=== PATIENT | male | born 1955 | race Hispanic/Latino ===

== ENCOUNTER → 2018-06-29 | Outpatient (CLI) | payer MEDICARE ==
--- NOTE | 2018-06-30 09:00 | Diagnostic Imaging Report ---
MRI of the left shoulder without contrast. History: Shoulder pain. Decreased range of motion. Pain not responding to conservative management Comparison: None Technique: Coronal PD FS, sagital PD FS, and axial PD and PD FS. Findings: Rotator cuff: There is rotator cuff tendinosis with a small full-thickness tear involving the anterior fibers of the supraspinatus and infraspinatus tendons at the humeral insertion site. There is minimal retraction of the torn fibers and there is mild muscle atrophy. This is best seen on coronal image 14 through 16. Additionally, there is subscapularis tendinosis. There is nonspecific teres minor muscle atrophy. Osseous acromion complex: There is a type II acromion with mild lateral downsloping. There is moderate degenerative arthrosis at the acromioclavicular joint with undersurface spurring and narrowing of the supraspinatus tendon outlet. There is subacromial/subdeltoid bursitis. Glenohumeral joint: There is degeneration and fraying of the labrum. The articular cartilage surfaces are slightly thin. The humeral head is well-seated in the glenoid fossa Biceps tendon: The biceps tendon is intact. Other findings: Negative for muscle dilatation or osseous fracture. Impression: Rotator cuff tendinosis with a small full-thickness tear involving the anterior fibers of the supraspinatus and infraspinatus tendons at the humeral insertion site. There is minimal retraction of the torn fibers and there is mild muscle atrophy. There is nonspecific teres minor muscle atrophy. Moderate degenerative arthrosis at the acromioclavicular joint with narrowing of the supraspinatus tendon outlet and subacromial/subdeltoid bursitis. Signed by: Dr. Jon Fregoso M.D. on 06/30/2018 8:56 AM
== END ==
LOC: MRI 15:48
PROVIDERS: ATTEND Internal Medicine
DX: M25.512 Pain in left shoulder (principal)

== ENCOUNTER → 2019-04-07 | Outpatient (CLI) | payer MEDICARE ==
--- NOTE | 2019-04-07 12:52 | Diagnostic Imaging Report ---
History: Cognitive impairment. Comparison studies:None Technique: Axial images were obtained from the skull base to the vertex. Coronal and sagittal images reconstructed from the axial data. Intravenous contrast: None Dose modulation, iterative reconstruction, and/or weight based adjustment of the mA/kV was utilized to reduce the radiation dose to as low as reasonably achievable. Findings: Scalp/skull: No abnormalities. Extra-axial spaces: No masses. No fluid collections. Brain sulci: Mildly prominent. Ventricles: Mild compensatory dilatation. No hydrocephalus. Parenchyma: Cortical based hypodensity at the left inferior cerebellum with effacement of the adjacent folia. Few hypodensities in the supratentorial white matter are small vessel ischemic changes. No masses, hemorrhage, acute or chronic cortical vascular insults. Sellar/suprasellar region: No abnormalities. Craniocervical junction: Patent foramen magnum. No Chiari one malformation. Incidental findings: Atherosclerotic calcifications in the carotid siphons and left vertebral artery . 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 No hemorrhage, midline shift or herniation. Chronic findings: 1. Mild generalized volume loss. 2. Mild supratentorial white matter small vessel ischemic changes. The above finding was reported and acknowledged to Dr. Madai vazquez at 12:[address] Alcaraz at 2:46 PM 04/07/2019 Signed by: DR Luis Fernando Casas M.D. on 04/07/2019 2:47 PM
== END ==
LOC: CT 11:39
PROVIDERS: ATTEND Internal Medicine
DX: G31.84 Mild cognitive impairment of uncertain or unknown etiology (principal)
CPT/HCPCS: 70450

== ENCOUNTER → 2019-05-21 | Outpatient (CLI) | payer MEDICARE ==
--- NOTE | 2019-05-21 15:35 | Diagnostic Imaging Report ---
MRI BRAIN WO HISTORY: Dizziness, headache COMPARISON: Head CT 04/07/2019; concurrent intracranial MRA TECHNIQUE: Sagittal T2, axial T2, axial T1, axial T2/FLAIR, axial gradient echo (or susceptibility weighted), coronal T2/FLAIR, and axial diffusion weighted MR images of the brain were obtained without contrast. DISCUSSION: Scalp/bone marrow: Unremarkable. Brain sulci: Mildly prominent. Ventricles: Mild compensatory dilatation. Extra-axial spaces: No masses or fluid collections. Parenchyma: Scattered T2/FLAIR hyperintense foci throughout the supratentorial white matter are likely chronic microvascular ischemic changes. There is an old infarct in the left inferior cerebellum (left posterior inferior cerebellar artery territory) Otherwise, no mass, hemorrhage, or acute vascular insults. Vessels: Abnormal T2/FLAIR hyperintensity is seen throughout the visualized left vertebral artery V2, V3, and lower V4 segments. Left V2 segment involvement is best seen on sagittal T2 fat sat images. Otherwise, grossly unremarkable. Sellar/Suprasellar region: No abnormalities. Craniocervical junction: No abnormalities. Incidental findings: None. IMPRESSION: 1. Abnormal signal throughout the visualized left vertebral artery (upper V2 to lower V4 segments) may be due to age indeterminate occlusion. 2. 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 Otherwise, no acute intracranial abnormalities. No evidence for acute ischemia. 4. Mild supratentorial chronic microvascular ischemic change. Mild generalized cerebral volume loss. Further evaluation with cervical CTA or MRA is recommended if clinically feasible. Signed by: Dr. David Arellano M.D. on 05/21/2019 3:31 PM
--- NOTE | 2019-05-21 15:35 | Diagnostic Imaging Report ---
MRA HEAD WO HISTORY: Dizziness, headache COMPARISON: Concurrent brain MRI, head CT 04/07/2019 TECHNIQUE: Axial 3D intracranial [id number] MRA images were obtained without contrast. Maximum intensity projection and coronal/sagittal reformatted images were created. Please note that the lower intradural vertebral arteries are out of the [id number]. FINDINGS: Carotid arteries: Mild focal stenosis in the left internal carotid artery lacerum segment. No other flow abnormalities in the intracranial internal carotid arteries. Normal A1 and M1 segments. Vertebrobasilar Circulation: Right vertebral artery: No flow abnormalities. Left vertebral artery: Mild stenoses are seen in the visualized mid and upper left vertebral artery V4 segment. Basilar artery: No flow abnormalities. Posterior cerebral arteries: No flow abnormalities. Normal Variants: ACom: Not clearly visualized PComs: Not visualized Vertebral arteries: The right vertebral artery appears dominant. IMPRESSION: Please note that the lower intradural vertebral arteries are out of the [id number]. 1. Mild stenoses in the visualized mid and upper left vertebral artery V4 segment. 2. Mild focal stenosis in the left internal carotid artery lacerum segment. 3. No other intracranial MRA abnormalities. Further evaluation with cervical CTA or MRA is recommended if clinically feasible. Signed by: Dr. David Arellano M.D. on 05/21/2019 3:32 PM
== END ==
LOC: MRI 13:49
PROVIDERS: ATTEND Internal Medicine
DX: H81.49 Vertigo of central origin, unspecified ear (principal)
CPT/HCPCS: 70544; 70551